=== PATIENT | female | born 1985 | race Caucasian/White ===

== ENCOUNTER 2017-01-24 22:00 | Inpatient (IN) | payer BC ==
[~2017-01-24] VITALS: Ht 162.6 cm; Wt 87.0 kg
[2017-01-24 23:17] VITALS: Ht 162.6 cm; Wt 87.0 kg
[2017-01-24 23:21] VITALS: BP 126/62; PULSE 75; RESP 18
[2017-01-24] MEDS ORDERED: LIDOCAINE 1% (MPF) 30 ML INJ INJ PRN (23:30)
[2017-01-24] MEDS ORDERED: BUTORPHANOL 2 MG INJ IV PRN (23:30)
[2017-01-24] MEDS ORDERED: METHYLERGONOVINE 0.2 MG INJ IM PRN (23:30)
[2017-01-24] MEDS ORDERED: IBUPROFEN 600 MG TAB PO PRN (23:30)
[2017-01-24] MEDS ORDERED: MISOPROSTOL 200 MCG TAB PR PRN (23:30)
[2017-01-24] MEDS ORDERED: AMPICILLIN 2 GM/NS (PMX) 100 ML IV ONE (23:30)
[2017-01-24] MEDS ORDERED: OXYTOCIN 30 UNITS/LR 500 ML IV PRN (23:30)
[2017-01-24] MEDS ORDERED: CARBOPROST 250 MCG INJ IM PRN (23:30)
[2017-01-24] MEDS ORDERED: OXYTOCIN 30 UNITS/LR 500 ML IV SCH ×2 (23:30)
[2017-01-24] MEDS: LACTATED RINGER'S 1,000 ML IV SCH (23:52)
[2017-01-25] MEDS ORDERED: LACTATED RINGER'S 1,000 ML IV PRN (01:00)
[2017-01-25] MEDS ORDERED: FENTAnyl 2MCG/ML-ROPIV 0.2% 100 ML ONE (01:10)
[2017-01-25] MEDS ORDERED: NALOXONE (0.4 MG/ML) INJ IV PRN (01:30)
[2017-01-25] MEDS: OXYTOCIN 30 UNITS/LR 500 ML IV SCH ×2 (02:08→22:55)
[2017-01-25] MEDS: AMPICILLIN 1 GM/NS (PMX) 50 ML IV SCH ×6 (04:11→23:22)
[2017-01-25] MEDS: LACTATED RINGER'S 1,000 ML IV SCH ×3 (04:12→22:20)
[2017-01-25] MEDS: FENTAnyl 2MCG/ML-ROPIV 0.2% 100 ML BAG EPI SCH ×3 (08:57→21:13)
[2017-01-25] MEDS ORDERED: ONDANSETRON 4 MG INJ ONE (16:58)
[2017-01-25] MEDS ORDERED: ONDANSETRON 4 MG INJ IV PRN (17:30)
[2017-01-26] MEDS ORDERED: OXYTOCIN 10 UNIT INJ IM ONE (01:00)
[2017-01-26] MEDS ORDERED: OXYTOCIN 30 UNITS/LR 500 ML IV SCH (01:27)
[2017-01-26] MEDS: LACTATED RINGER'S 1,000 ML IV* SCH ×2 (01:27→09:27)
[2017-01-26] MEDS ORDERED: MISOPROSTOL 200 MCG TAB PR PRN (01:30)
[2017-01-26] MEDS ORDERED: BENZOCAINE 20% 56 ML SPRAY TOP PRN (01:30)
[2017-01-26] MEDS ORDERED: LANOLIN 7 GM TUBE TOP PRN (01:30)
[2017-01-26] MEDS ORDERED: CARBOPROST 250 MCG INJ IM PRN (01:30)
[2017-01-26] MEDS ORDERED: OXYTOCIN 30 UNITS/LR 500 ML IV PRN (01:30)
[2017-01-26] MEDS ORDERED: METHYLERGONOVINE 0.2 MG INJ IM PRN (01:30)
--- NOTE | 2017-01-26 01:34 | LDN ---
Date/Time of Note Date/Time of Note DATE: 01/26/17 TIME: 01:30 Delivery Summary of a viable baby boy weighing 3420 grams, or 7# 9 oz, 20.25" long, and with Apgars of 9/9. Weeks of Gestation 39w 1d Placenta Delivered: Spontaneously Meconium: none Episiotomy: No Perineal laceration: 2 Laceration repair: Second degree perineal laceration and b/l small second degree vaginal lacerations and a small first degree periurethral laceration all repaired with 2-0 chromic. Anesthesia type: Epidural Estimated blood loss: 200 Sponge & Needle done & correct: Yes All needle counts correct: Yes Any foreign bodies felt in the: No Problems: Delivery Information Sex Infant Sex: male Apgars 1 Minute: 9 5 Minute: 9 Suctioning Nose & mouth suctioned at dang: Yes Delee suction performed: No Umbilical Cord Umbilical cord with: 3 Vessels Cord presentations: nuchal cord Nuchal cord present X: 1 Cord Blood was obtained: Yes Mother & Baby Disposition Disposition Mom & Baby to Maternity; Good: Yes Baby to NICU: No BRANDYN ENCINAS MD Jan 26, 2017 01:34
--- NOTE | 2017-01-26 01:38 | HP ---
Date/Time of Note Date/Time of Note DATE: 01/26/17 TIME: 01:34 OB - History Hx of Present Free Text/Dictation 31 y.o. G1 with an IUP at 39w 1d and a corrected EDC of 02/01 was admitted for induction due to pelvic pain. Last Menstrual Period: Apr 21, 2016 Estimated Due Date: Feb 01, 2017 : 1 Para: 0 Spontaneous : 0 Therapeutic : 0 Care: Good Care Ultrasounds: Normal mid trimester US Obstetrical Complications: None Medical Complications: None Past Family/Social History * Past Medical, Surgical, Family and Obstetric Histories reviewed from chart. Blood Type: O+ Rubella: immune RPR/VDRL: Negative GBS Status: Positive HBsAG: Negative OB Admission Exam Vital Signs Vital Signs Vital Signs Date Time Temp Pulse Resp B/P Pulse Ox O2 Delivery O2 Flow Rate FiO2 01/24/17 23:21 97.9 75 18 126/62 Room Air Physical Exam HEENT: WNL Heart: Rhythm Normal Abdomen: WNL Extremities: Normal Reflexes: Normal Cervical Dilatation: 2cm Effacement: Other (60%) Station: -2 Amniotic Fluid: Clear Heart Rate: 140's Accelerations: Accelerations Present Decelerations: No Decelerations Varibility: Moderate Contractions on Admission: 6-10 Minutes Apart Last 72 hours Lab Results CBC & BMP 01/24/17 23:45 OB Assessment/Plan Reason for admission: induction of labor Other Assessment: Group B strep positive. Plan: Induction Induction Method: per Pitocin Protocol Other plan: Ampicillin prophylaxis. BRANDYN ENCINAS MD Jan 26, 2017 01:38
[2017-01-26] MEDS: HYDROCODONE/APAP (5/325) TAB PO PRN ×3 (03:22→23:42)
[2017-01-26 04:10] VITALS: BP 115/73; PULSE 94; RESP 18
[2017-01-26 04:40] VITALS: BP 130/70; PULSE 90; RESP 18
[2017-01-26] MEDS: IBUPROFEN 600 MG TAB PO SCH ×4 (06:11→23:43)
[2017-01-26 08:00] VITALS: BP 116/58; PULSE 85; RESP 18
[2017-01-26 11:40] VITALS: BP 116/60; PULSE 77; RESP 18
[2017-01-26 16:17] VITALS: BP 125/58; PULSE 79; RESP 18
[2017-01-26 19:56] VITALS: BP 124/69; PULSE 74; RESP 20
[2017-01-27 04:15] VITALS: BP 114/64; PULSE 75; RESP 20
[2017-01-27] MEDS: IBUPROFEN 600 MG TAB PO SCH ×4 (05:23→23:26)
[2017-01-27] MEDS: HYDROCODONE/APAP (5/325) TAB PO PRN (05:23)
[2017-01-27 07:30] VITALS: BP 142/67; PULSE 74; RESP 18
[2017-01-27 15:30] VITALS: BP 130/65; PULSE 68; RESP 20
[2017-01-27 20:36] VITALS: BP 114/65; PULSE 72; RESP 20
--- NOTE | 2017-01-27 22:37 | PD.PPDC ---
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
--- NOTE | 2017-01-27 22:37 | PD.PPDC ---
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
--- NOTE | 2017-01-27 22:37 | PD.PPDC ---
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
--- NOTE | 2017-01-27 22:39 | DS ---
Date/Time of Note Date/Time of Note DATE: 01/27/17 TIME: 22:38 Obstetrical Discharge Record Final Diagnosis Final Diagnosis: Term delivered Vaginal Delivery Obstetrical Delivery: Spontaneous, Laceration, Repaired Complications Augmentation: Yes Induction: Yes Condition on Discharge Physical Assessment Last Vitals: T= 97.9 BP 114/65 Voiding: Yes Bowel Movement: Yes Breast: Soft, non-tender Fundus: Firm Episiotomy: Lacerations intact. Calf Tenderness: No Patient Condition: Good BRANDYN ENCINAS MD Jan 27, 2017 22:39
[2017-01-28] MEDS: IBUPROFEN 600 MG TAB PO SCH ×2 (05:19→11:20)
[2017-01-28 08:45] VITALS: BP 130/82; PULSE 87; RESP 20
[2017-01-28] MEDS ORDERED: DIPHTH/TET/ACEL PERTUSS (ADULT) 0.5 ML VIAL IM* ONE (09:00)
[2017-01-28] MEDS: HYDROCODONE/APAP (5/325) TAB PO PRN (12:17)
== END 2017-01-28 14:40 | disposition home or self-care (01) | DRG 775 ==
LOC: L-D 22:07 → PP1 01-26 03:22
PROVIDERS: ADMIT Obstetrics & Gynecology; ATTEND Obstetrics & Gynecology
PROC: 10E0XZZ Delivery of Products of Conception, External Approach (ICD-10-PCS; principal; 2017-01-26)
PROC: 0KQM0ZZ Repair Perineum Muscle, Open Approach (ICD-10-PCS; 2017-01-26)
PROC: 0UQMXZZ Repair Vulva, External Approach (ICD-10-PCS; 2017-01-26)
DX: O71.82 Other specified trauma to perineum and vulva (principal); Z37.0 Single live birth; O69.81X0 Labor and delivery complicated by cord around neck, without compression, not applicable or unspecified; Z3A.39 39 weeks gestation of pregnancy
CPT/HCPCS: 62319; 85025; 85610; 85730; 86592; 86900; 86901; 87340; 90715; J0290; J2405; J2590; J3010; J7120